=== PATIENT | female | born 1950 | race Caucasian/White ===

== ENCOUNTER → 2019-12-16 | Outpatient (CLI) | payer MEDICARE ==
--- NOTE | 2019-12-16 10:09 | US ---
EXAMINATION TYPE: US carotid duplex BILAT DATE OF EXAM: 12/16/2019 COMPARISON: NONE CLINICAL HISTORY: K81.9 Cholecystitis, I65.29 Carotid occlusion. Light headedness EXAM MEASUREMENTS: RIGHT: Peak Systolic Velocity (PSV) cm/sec ----- Right CCA: 135.2 ----- Right ICA: 109.2 ----- Right ECA: 127.3 ICA/CCA ratio: 0.8 RIGHT: End Diastole cm/sec ----- Right CCA: 16.9 ----- Right ICA: 17.1 ----- Right ECA: 26.8 LEFT: Peak Systolic Velocity (PSV) cm/sec ----- Left CCA: 97.9 ----- Left ICA: 106.0 ----- Left ECA: 110.1 ICA/CCA ratio: 1.1 LEFT: End Diastole cm/sec ----- Left CCA: 20.4 ----- Left ICA: 28.4 ----- Left ECA: 110.1 VERTEBRALS (direction of flow): Right Vertebral: Antegrade Left Vertebral: Antegrade Rhythm: Normal B/L intimal thickening. Elevated velocities; Rt Prox-Distal CCA, Rt ECA. No significant stenosis see n. IMPRESSION: 1. Slight increased velocity right common carotid artery and external carotid artery. 2. Internal carotid artery velocities remain normal without suggestion for significant flow-limiting stenosis. 3. There is some mild bilateral intimal thickening present. Criteria for Assigning % of Stenosis / Diameter reduction (Estimation based on the indirect measurements of the internal carotid artery velocities (ICA PSV). 1. Normal (no stenosis)=ICA PSV < 125 cm/s: ratio < 2.0: ICA EDV<40 cm/s. 2. Less than 50% stenosis=ICA PSV < 125 cm/s: ratio < 2.0: ICA EDV<40 cm/s. 3. 50 to 69% stenosis=ICA PSV of 125 to 230 cm/s: ration 2.0 ? 4.0: ICA EDV 40-100 cm/s. 4. Greater than 70% stenosis to near occlusion= ICA PSV > 230 cm/s: ratio > 4.0: ICA EDV > 100 cm/s. 5. Near occlusion= ICA PSV velocities may be low or undetectable: variable ratio and ICA EDV. 6. Total occlusion=unable to detect flow.
--- NOTE | 2019-12-16 20:34 | US ---
EXAMINATION TYPE: US abdomen limited DATE OF EXAM: 12/16/2019 COMPARISON: NONE CLINICAL HISTORY: K81.9 Cholecystitis, I65.29 Carotid occlusion. EXAM MEASUREMENTS: Liver Length: 17.2 cm Gallbladder Wall: 0.3 cm CBD: 0.4 cm Right Kidney: 10.3 X 4.1 X 4.0 cm Pancreas: limited vis Liver: measures in upper limits of normal. Dense/Fatty Gallbladder: wnl Evidence for sonographic Joseph's sign: No CBD: wnl Right Kidney: No hydronephrosis or masses seen IMPRESSION: 1. Hepatomegaly with mild fatty infiltration of the liver.
== END | disposition home or self-care (01) ==
LOC: RADUSWWP 07:21
PROVIDERS: ATTEND Family Medicine
DX: I77.89 Other specified disorders of arteries and arterioles (principal); R16.0 Hepatomegaly, not elsewhere classified; K76.0 Fatty (change of) liver, not elsewhere classified
CPT/HCPCS: 76705; 93880

== ENCOUNTER → 2021-11-27 | Outpatient (CLI) | payer MEDICARE ==
--- NOTE | 2021-11-28 17:18 | MM ---
Reason for Exam: Screening (asymptomatic). Last mammogram was performed 8 year(s) and 3 month(s) ago. Patient History: Menarche at age 10. First Full-Term at age 16. Hysterectomy at age 28. Postmenopausal. Risk Values: Venessa 5 year model risk: 1.3%. NCI Lifetime model risk: 3.1%. Prior Study Comparison: No prior studies available for comparison. Tissue Density: There are scattered fibroglandular densities. Findings: Analyzed By CAD. Low axillary tail lymph node on the left. No significant mass, suspicious microcalcification, or other discrete abnormality is seen. Tiny benign oil cyst calcification medial anterior right breast. Overall Assessment: Benign, BI-RAD 2 Management: Screening Mammogram of both breasts in 1 year. 1. Patient should continue monthly self breast exams. 2. A clinical breast exam by your physician is recommended on an annual basis. 3. This exam should not preclude additional follow-up of suspicious palpable abnormalities. Electronically signed and approved by: Christian Mcknight M.D. Radiologist
== END | disposition home or self-care (01) ==
LOC: RADMAMWWP 16:21
PROVIDERS: ATTEND Family Medicine
DX: Z12.31 Encounter for screening mammogram for malignant neoplasm of breast (principal); Z78.0 Asymptomatic menopausal state
CPT/HCPCS: 77067

== ENCOUNTER → 2022-12-21 | Outpatient (CLI) | payer MEDICARE ==
--- NOTE | 2022-12-25 22:55 | MM ---
Reason for Exam: Screening (asymptomatic). Last mammogram was performed 1 year(s) and 1 month(s) ago. Patient History: Menarche at age 10. First Full-Term at age 16. Hysterectomy at age 28. Postmenopausal. Risk Values: Venessa 5 year model risk: 1.3%. NCI Lifetime model risk: 3.0%. Prior Study Comparison: 06/24/1999 Bilateral Screening Mammogram, [facility]. 09/01/2013 Bilateral Screening Mammogram, [facility]. 11/27/2021 Bilateral MG screening mammo w CAD, [facility]. Tissue Density: There are scattered fibroglandular densities. Findings: Analyzed By CAD. There is no suspicious group of microcalcifications or new suspicious mass in either breast. Overall Assessment: Negative, BI-RAD 1 Management: Screening Mammogram of both breasts in 1 year. . Patient should continue monthly self-breast exams. A clinical breast exam by your physician is recommended on an annual basis. This exam should not preclude additional follow-up of suspicious palpable abnormalities. Note on Venessa scores and lifetime risk: 1. A Venessa score greater than 3% is considered moderate risk. If this is the case, consider specialist referral to assess eligibility for a risk reducing agent. 2. If overall lifetime risk for the development of breast cancer is 20% or higher, the patient may qualify for future screening with alternating mammogram and breast MRI. Electronically signed and approved by: Christian Mcknight M.D. Radiologist
== END | disposition home or self-care (01) ==
LOC: RADMAMWWP 14:37
PROVIDERS: ATTEND Family Medicine
DX: Z12.31 Encounter for screening mammogram for malignant neoplasm of breast (principal); Z78.0 Asymptomatic menopausal state
CPT/HCPCS: 77067

== ENCOUNTER → 2023-12-03 | Outpatient (CLI) | payer MEDICARE | END | disposition home or self-care (01) | LOC: LABPRL 12:50 | PROVIDERS: ATTEND Family Medicine | DX: Z00.00 Encounter for general adult medical examination without abnormal findings (principal) | CPT/HCPCS: 80053; 80061; 82043; 82570; 83036 ==